=== PATIENT | female | born 1955 | race Caucasian/White ===

== ENCOUNTER 2020-05-05 14:47 | Emergency (ER) | payer BC, OTHER ==
[2020-05-06 15:39] LABS: SARS-CoV-2 MS2 Positive; SARS-CoV-2 N Gene Positive; SARS-CoV-2 S Gene Positive; SARS-CoV-2 orf1ab Positive
== END 2020-05-05 15:40 | disposition home or self-care (01) ==
LOC: ERS 14:47
DX: U07.1 COVID-19 (principal); J06.9 Acute upper respiratory infection, unspecified; I10 Essential (primary) hypertension; E78.5 Hyperlipidemia, unspecified
CPT/HCPCS: 87635; 99283; U0003

== ENCOUNTER 2020-06-10 08:51 | Outpatient (CLI) | payer MEDICARE, OTHER ==
--- NOTE | 2020-06-10 09:36 | RAD ---
CHEST 2 VIEWS: Date: 06/10/2020 HISTORY: Shortness of breath. FINDINGS: Heart size is within normal limits. The lungs are clear of acute process. No confluent pneumonia, ove rt edema, or pleural effusion. IMPRESSION: No acute intrathoracic disease. No evidence for pneumonia. POS: OFF
== END 2020-06-10 08:52 | disposition home or self-care (01) ==
LOC: BICRAD 08:51
PROVIDERS: ATTEND Family Medicine
DX: R06.02 Shortness of breath (principal); E78.00 Pure hypercholesterolemia, unspecified; I10 Essential (primary) hypertension
CPT/HCPCS: 36415; 71046; 80053; 80061

== ENCOUNTER 2021-12-06 17:34 | Emergency (ER) | payer MEDICARE, OTHER ==
[2021-12-06 17:57] LABS: #Eosinphils 0.1 thou/uL (0.0-0.7); #Lymphocytes 0.9 thou/uL (1.20-3.40); #Monocytes 0.4 thou/uL (0.11-0.59); #Neutrophils 3.6 thou/uL (1.40-6.50); %Basophils 0.3 % (0.0-1.0); %Lymphocytes 18.5 % (21.0-51.0); %Monocytes 8.2 % (0.0-10.0); %Neutrophils 70.9 % (42.0-75.0); Hemoglobin 14.1 g/dL (12.0-16.0); Mean Corpuscular HGB CONC 31.6 g/dL (32.0-36.0); Mean Corpuscular Hemoglobin 28.3 pg (27.0-31.0); Mean Corpuscular Volume 89.5 fL (78.0-98.0); Mean Platelet Volume 7.8 fL (7.4-10.4); Platelet Count 225 thou/uL (130-400); RBC Distribution Width 12.6 % (11.5-14.5); Red Blood Cell (RBC) Count 4.99 mill/uL (4.20-5.40); White Blood Cell (WBC) Count 5.1 thou/uL (4.8-10.8)
[2021-12-06 18:20] LABS: ALT (SGPT) 11 U/L (8-55); AST (SGOT) 13 U/L (5-34); Albumin 3.9 g/dL (3.4-4.8); Alkaline Phosphatase 69 U/L (40-110); Anion Gap 11 mmol/L (10-20); BUN (Urea Nitrogen) 16 mg/dL (9.8-20.1); Bilirubin, Total 0.4 mg/dL (0.2-1.2); Calc. Creatinine Clearance 0 mL/min (70-130); Calcium 9.3 mg/dL (7.8-10.44); Carbon Dioxide 26 mmol/L (23-31); Chloride 108 mmol/L (98-107); Glucose 100 mg/dL (80-115); Lipase 51 U/L (8-78); Protein, Total 6.9 g/dL (5.8-8.1); Sodium 141 mmol/L (136-145)
== END 2021-12-06 20:16 | disposition home or self-care (01) ==
LOC: ERS 17:34
DX: K62.89 Other specified diseases of anus and rectum (principal); L30.9 Dermatitis, unspecified; I10 Essential (primary) hypertension; E78.5 Hyperlipidemia, unspecified
CPT/HCPCS: 36415; 80053; 83690; 85025; 99283

== ENCOUNTER 2022-01-06 12:45 | Outpatient (CLI) | payer MEDICARE, OTHER | END 2022-01-06 12:46 | disposition home or self-care (01) | LOC: ULT 12:45 | PROVIDERS: ATTEND Nurse Practitioner Family | DX: L59.8 Other specified disorders of the skin and subcutaneous tissue related to radiation (principal); I10 Essential (primary) hypertension; I08.1 Rheumatic disorders of both mitral and tricuspid valves; I31.3 Pericardial effusion (noninflammatory) | CPT/HCPCS: 93306 ==

== ENCOUNTER 2022-01-06 14:23 | Outpatient (CLI) | payer MEDICARE, OTHER | END 2022-01-06 14:24 | disposition home or self-care (01) | LOC: BICRAD 14:23 | PROVIDERS: ATTEND Nurse Practitioner Family | DX: L59.8 Other specified disorders of the skin and subcutaneous tissue related to radiation (principal); T66.XXXA Radiation sickness, unspecified, initial encounter; I10 Essential (primary) hypertension | CPT/HCPCS: 71046 ==

== ENCOUNTER 2025-07-24 09:59 | Day surgery (SDC) | payer MEDICARE ==
[2025-07-24] MEDS ORDERED: diphenhydrAMINE 25 MG CAP PO SCH (10:45)
[2025-07-24] MEDS ORDERED: Acetaminophen 500 MG TAB ONE (11:03)
[2025-07-24] MEDS: Acetaminophen 500 MG TAB PO SCH (11:04)
[2025-07-24] MEDS ORDERED: PNEUMOC 20-VAL CONJ-DIP CRM/PF 0.5 ML SYRINGE IM ONE (11:30)
[2025-07-24 12:11] VITALS: BP 93/50; TEMP 98.3
== END 2025-07-24 12:46 | disposition home or self-care (01) ==
LOC: ONC/OP 09:59
PROVIDERS: ATTEND Internal Medicine Hematology & Oncology
DX: D64.9 Anemia, unspecified (principal); D69.59 Other secondary thrombocytopenia
CPT/HCPCS: 36430; 80053; 84439; 84443; 84550; 86850; 86900; 86901; P9035; 36415